=== PATIENT | male | born 1955 | race Caucasian/White ===

== ENCOUNTER 2025-06-04 10:53 | Outpatient (RCR) | payer MEDICARE, OTHER, SELFPAY | END 2025-07-17 10:52 | disposition home or self-care (01) | LOC: PT 10:53 | PROVIDERS: Visit Provider Neurological Surgery | DX: M46.1 Sacroiliitis, not elsewhere classified (principal); M47.26 Other spondylosis with radiculopathy, lumbar region | CPT/HCPCS: 97110; 97112; 97113; 97140; 97162 ==